=== PATIENT | female | born 1940 | race Caucasian/White ===

== ENCOUNTER 2022-09-10 17:43 | Emergency (ER) | payer MEDICARE, SELFPAY ==
--- NOTE | 2022-09-10 18:27 | ED.SOB ---
HPI - SOB/Dyspnea General Chief Complaint: Nausea/Vomiting/Diarrhea Stated Complaint: sob,vomitting,dizziness, fever Time Seen by Provider: 09/10/22 19:08 Related Data Allergies Allergy/AdvReac Type Severity Reaction Status Date / Time No Known Allergies Allergy Verified 09/10/22 18:27 [facility] Social History Social History Advance Directives: Yes Advance Directives Information Provided: No Advance Directives on File: No Physical Exam Vital Signs: Vital Signs: Last Vital Signs Temp 97.5 F 09/10/22 18:28 Pulse 72 09/10/22 19:50 Resp 21 H 09/10/22 19:50 BP 113/70 09/10/22 19:50 Pulse Ox 98 09/10/22 19:50 O2 Del Method 09/10/22 19:50 BMI result Body Mass Index 24.8 Course Course Course Narrative: RME: Patient is an 81-year-old female with no pertinent past medical history reported. Presents to the emergency department today reporting that Last night began with cough, today with weakness, fatigue, nausea, vomiting, diarrhea, decreased oral intake. She is also reporting anterior chest pain intermittently over past 2-3 days, currently denying chest pain. Denies shortness of breath. Took ibuprofen at 16:00. Has not received vaccination for COVID-19 or influenza PE: Red-brown emesis at the time of examination in bag. Abdominal examination is benign. No respiratory distress. LSCTA. Ambulatory with a slow steady gait. No focal neurological findings. Plan: COVID-19 testing, influenza testing, CBC, CMP, lipase, EKG, troponin, sublingual zofran Medications Administered Discontinued Medications Generic Name Dose Route Start Last Admin Trade Name Freq PRN Reason Stop Dose Admin Aspirin 325 mg 09/10/22 19:21 09/10/22 19:38 Aspirin Enteric Coated 325 Mg Tablet. PO 09/10/22 19:22 325 mg ONCE ONE Administration Heparin Sodium (Porcine) 3,300 unit 09/10/22 19:21 09/10/22 19:49 Heparin Sodium,Porcine 5,000 Unit/Ml Vial 60 unit/kg (3300 unit) 09/10/22 19:22 3,300 unit IVPUSH Administration ONCE ONE Heparin Sodium/Sodium Chloride 25,000 unit in 250 mls @ 0 mls/hr 09/10/22 19:45 09/10/22 19:45 Heparin Sodium,Porcine/1/2ns IVCONT 12 units/kg/hr .Q0M HAYES 6.94 mls/hr Administration Protocol Per Protocol Ondansetron HCl 4 mg 09/10/22 18:43 09/10/22 19:23 Ondansetron Odt 4 Mg Tab.Rapdis TRANSLINGU 09/10/22 18:44 4 mg ONCE ONE Administration Ticagrelor 180 mg 09/10/22 19:27 09/10/22 19:38 Ticagrelor 90 Mg Tablet PO 09/10/22 19:28 180 mg ONCE ONE Administration MDM - SOB/Dyspnea Lab Data Result diagrams: 09/10/22 18:59 09/10/22 18:59 Labs: Lab Results 09/10/22 09/10/22 09/10/22 Range/Units 18:59 18:59 18:59 WBC 17.9 H (4.8-10.8) X10*3/uL RBC 3.39 L (4.20-5.50) X10*6/uL Hgb 10.3 L (12.0-16.0) g/dl Hct 31.2 L (37.0-47.0) % MCV 92.0 (80.0-98.0) fL MCH 30.4 (27.0-33.0) pg MCHC 33.0 (31.0-35.0) g/dl RDW 13.6 (11.0-16.0) % Plt Count 300 (160-400) X10*3/uL MPV 11.3 (9.4-12.3) fL Immature Gran % (Auto) 0.7 H (0.0-0.4) % Neut % (Auto) 83.4 H (45-73) % Lymph % (Auto) 7.3 L (20-40) % Power % (Auto) 8.3 (2-11) % Eos % (Auto) 0.1 (0-4) % Baso % (Auto) 0.2 (0-2) % Lymph # (Auto) 1.3 (1.2-4.9) X10*3/uL Power # (Auto) 1.5 H (0.1-1.2) X10*3/uL Eos # (Auto) 0.0 (0.0-0.4) X10*3/uL Baso # (Auto) 0.0 (0.0-0.2) X10*3/uL Abs Immat Gran (auto) 0.12 H (0.00-0.03) X10*3/uL Absolute Neuts (auto) 14.9 H (2.0-8.3) x10*3/uL Absolute Nucleated RBC 0.000 (0.0-0.012) X10*3/uL Nucleated RBC % (auto) 0.0 (0.0-0.2) /100WBC Sodium 136 (135-145) mmol/L Potassium 4.2 (3.3-5.1) mmol/L Chloride 103 (96-108) mmol/L Carbon Dioxide 22 (22-29) mmol/L Anion Gap 15 (12-20) BUN 23 H (9-16) mg/dL Creatinine 1.03 (0.5-1.4) mg/dL Estim Creat Clear Calc 33.9 Estimated GFR 52 POC Glucose (60-115) mg/dL Random Glucose 164 H (60-115) mg/dL Calcium 9.4 (8.4-10.2) mg/dL Magnesium 2.0 (1.6-2.6) mg/dL Total Bilirubin 0.5 (0.0-1.0) mg/dL AST 341 H (5-31) U/L ALT 91 H (0-31) U/L Alkaline Phosphatase 47 (39-117) U/L Troponin I High Sens > 3600.0 H* (<3.5-17.0) ng/L Total Protein 6.5 (6.5-8.0) g/dL Albumin 4.0 (3.5-5.0) g/dL Lipase 20 (8-78) U/L COVID-19 (ZULLY) (Negative) COVID-19 Clin Com Influenza Type A (MAURICE) (Negative) Influenza Type B (MAURICE) (Negative) Influenza A & B Note 09/10/22 09/10/22 09/10/22 Range/Units 18:59 18:59 19:42 WBC (4.8-10.8) X10*3/uL RBC (4.20-5.50) X10*6/uL Hgb (12.0-16.0) g/dl Hct (37.0-47.0) % MCV (80.0-98.0) fL MCH (27.0-33.0) pg MCHC (31.0-35.0) g/dl RDW (11.0-16.0) % Plt Count (160-400) X10*3/uL MPV (9.4-12.3) fL Immature Gran % (Auto) (0.0-0.4) % Neut % (Auto) (45-73) % Lymph % (Auto) (20-40) % Power % (Auto) (2-11) % Eos % (Auto) (0-4) % Baso % (Auto) (0-2) % Lymph # (Auto) (1.2-4.9) X10*3/uL Power # (Auto) (0.1-1.2) X10*3/uL Eos # (Auto) (0.0-0.4) X10*3/uL Baso # (Auto) (0.0-0.2) X10*3/uL Abs Immat Gran (auto) (0.00-0.03) X10*3/uL Absolute Neuts (auto) (2.0-8.3) x10*3/uL Absolute Nucleated RBC (0.0-0.012) X10*3/uL Nucleated RBC % (auto) (0.0-0.2) /100WBC Sodium (135-145) mmol/L Potassium (3.3-5.1) mmol/L Chloride (96-108) mmol/L Carbon Dioxide (22-29) mmol/L Anion Gap (12-20) BUN (9-16) mg/dL Creatinine (0.5-1.4) mg/dL Estim Creat Clear Calc Estimated GFR POC Glucose 119 H (60-115) mg/dL Random Glucose (60-115) mg/dL Calcium (8.4-10.2) mg/dL Magnesium (1.6-2.6) mg/dL Total Bilirubin (0.0-1.0) mg/dL AST (5-31) U/L ALT (0-31) U/L Alkaline Phosphatase (39-117) U/L Troponin I High Sens (<3.5-17.0) ng/L Total Protein (6.5-8.0) g/dL Albumin (3.5-5.0) g/dL Lipase (8-78) U/L COVID-19 (ZULLY) Negative (Negative) COVID-19 Clin Com See Note Influenza Type A (MAURICE) Negative (Negative) Influenza Type B (MAURICE) Negative (Negative) Influenza A & B Note See Note Discharge Plan Discharge Clinical Impression: Acute ST elevation myocardial infarction (STEMI) Patient Disposition: Xfer [facility] Transfer Details: [facility] Cardiac catheterization Lab Interventions: Acute Care Transfer Worksheet (ED) Last Done: 09/10/22 20:06 Discharge Date/Time: 09/10/22 20:08
[2022-09-10 18:28] VITALS: BP 115/45; PULSE 73; RESP 16; TEMP 36.4; O2SAT 98; BMI 23.8
--- NOTE | 2022-09-10 18:34 | ECG_ITS ---
Test Reason : N/V/D Blood Pressure : / mmHG Vent. Rate : 068 BPM Atrial Rate : 068 BPM P-R Int : 152 ms QRS Dur : 088 ms QT Int : 446 ms P-R-T Axes : 057 -13 059 degrees QTc Int : 474 ms Normal sinus rhythm Left ventricular hypertrophy with repolarization abnormality ( R in aVL , Franki product ) Inferior-posterior infarct , possibly acute ACUTE OH / STEMI Consider right ventricular involvement in acute inferior infarct Abnormal ECG No previous ECGs available Referred By: Katy Ortega Electronically Signed By:APRIL ROSAS MD
[2022-09-10 19:10] LABS: MANUAL DIFF FLAG NO
[2022-09-10 19:11] LABS: Basophils Percent Auto 0.2 % (0-2); Eosinophils Percent Auto 0.1 % (0-4); Hematocrit 31.2 % (37.0-47.0); Hemoglobin 10.3 g/dl (12.0-16.0); Imm Gran Abs Auto 0.12 X10*3/uL (0.00-0.03); Imm Gran Pct Auto 0.7 % (0.0-0.4); Lymphocytes Absolute Auto 1.3 X10*3/uL (1.2-4.9); Lymphocytes Percent Auto 7.3 % (20-40); Mean Corpuscular Hemoglobin 30.4 pg (27.0-33.0); Mean Platelet Volume 11.3 fL (9.4-12.3); Monocytes Absolute Auto 1.5 X10*3/uL (0.1-1.2); Monocytes Percent Auto 8.3 % (2-11); Neutrophils Absolute Auto 14.9 x10*3/uL (2.0-8.3); Neutrophils Percent Auto 83.4 % (45-73); Platelet Count 300 X10*3/uL (160-400); Red Blood Count 3.39 X10*6/uL (4.20-5.50); Red Cell Distribution Width 13.6 % (11.0-16.0); White Blood Count 17.9 X10*3/uL (4.8-10.8)
[2022-09-10] MEDS: Ondansetron ODT 4 MG TAB.RAPDIS TRANSLINGU (19:23)
[2022-09-10 19:27] LABS: Alanine Aminotransferase 91 U/L (0-31); Alkaline Phosphatase 47 U/L (39-117); Anion Gap 15 (12-20); Aspartate Amino Transferase 341 U/L (5-31); Bilirubin Total 0.5 mg/dL (0.0-1.0); Blood Urea Nitrogen 23 mg/dL (9-16); Calcium 9.4 mg/dL (8.4-10.2); Carbon Dioxide 22 mmol/L (22-29); Chloride 103 mmol/L (96-108); Creatinine Clr Calc Pharmacy 33.9; Estimated Glomerular Filt Rate 52; Glucose Random 164 mg/dL (60-115); Lipase 20 U/L (8-78); Potassium 4.2 mmol/L (3.3-5.1); Sodium 136 mmol/L (135-145); Total Protein 6.5 g/dL (6.5-8.0)
[2022-09-10 19:29] LABS: COVID-19 Test Negative (Negative); IDNOW Serial# 55D5AD1C
[2022-09-10 19:30] LABS: Influenza A Negative (Negative); Influenza B2 Negative (Negative)
--- NOTE | 2022-09-10 19:35 | ED_ITS ---
HPI - Chest Pain General Chief Complaint: Nausea/Vomiting/Diarrhea Stated Complaint: sob,vomitting,dizziness, fever Time Seen by Provider: 09/10/22 19:08 Source: patient and family Mode of arrival: ambulatory Limitations: no limitations History of Present Illness HPI narrative: 81-year-old female with no known past medical history (patient has not seen a doctor in approximately 15 years) complaining of some chest discomfort, shortness of breath and nausea which started several days ago. It was intermittent until approximately 4:00 a.m. this afternoon when she started having continuous chest discomfort. The patient was originally resistant to coming to the hospital, however, the patient's daughter convinced her to come into the hospital. complaint: chest pain and chest discomfort Onset (ago): day(s) Timing of current episode: episodic, increasing and still present Prior episodes: No Onset: during rest Pain location: substernal Pain radiation: none Severity: moderate Quality: tightness and aching Exacerbating factors: nothing Associated symptoms: nausea and diaphoresis Treatment prior to arrival: none Risk Factors Coronary artery disease risk factors: none (None known, patient has not seen a doctor in quite a while) Related Data Allergies Allergy/AdvReac Type Severity Reaction Status Date / Time No Known Allergies Allergy Verified 09/10/22 18:27 Review of Systems Review of Systems: Yes Unobtainable due to mental condition Constitutional: Constitutional: Denies chills and Denies fever(s) Eyes: Eyes: Denies blurry vision and Denies diplopia ENT: Reports system reviewed and no additional complaints, except as documented Cardiovascular: Cardiovascular: Reports chest pain, Reports chest pain at rest, Denies Epigastric Pain, Denies leg edema, Denies lightheadedness, Denies Loss of Consciousness and Reports dyspnea Respiratory: Respiratory: Denies cough and Reports dyspnea Gastrointestinal: Gastrointestinal: Reports no additional gastrointestinal complaints Genitourinary: Genitourinary: Reports no additional female genitourinary complaints Musculoskeletal: Musculoskeletal: Denies back pain Neurologic: Reports system reviewed and no additional complaints, except as d ocumented and Denies Abnormal speech present [facility] Past Medical History [facility] Narrative: Patient is unaware of any past medical history. Social history, patient does not smoke or drink alcohol. No known family history of cardiac disease Social History Social History Advance Directives: Yes Advance Directives Information Provided: No Advance Directives on File: No Physical Exam Vital Signs: Vital Signs: Last Vital Signs Temp 97.5 F 09/10/22 18:28 Pulse 73 09/10/22 18:28 Resp 16 09/10/22 18:28 BP 115/45 L 09/10/22 18:28 Pulse Ox 98 09/10/22 18:28 O2 Del Method 09/10/22 18:28 BMI result Body Mass Index 23.8 Stable and normal Const: General: healthy appearing, comfortable, alert, awake and Physically active Nutritional Appearance: average body habitus O rientation/consciousness: patient oriented x3 Limitations: no limitations HEENT: Head: Yes normal to inspection, Yes normocephalic and Yes atraumatic Ears: hearing grossly normal bilaterally General nose exam: Normal external nose present Face and sinus: Yes normal facial exam Mouth: Normal oral and palatal mucosa present Neck: Neck: Yes normal visual inspection and Yes full ROM Chest: Chest palpation & inspection: deferred Resp: Effort & Inspection: normal respiratory effort and no cough Auscultation: clear to auscultation bilaterally Cardio: Jugular venous distension: no JVD Rate: regular rate Rhythm: regular rhythm GI: Inspection: Yes normal to inspection, No Abdominal wall edema and No distended Back/Spine/Pelvis: Cervical Spine: normal cervical lordosis and cervical ROM normal Skin: General skin exam: no rashes or lesions noted Neuro: General: patient oriented x3 and CN's II-XI intact bilaterally Cognition (Neuro): normal cognition Speech: No Abnormal speech present Gait exam (Neuro): Normal gait present Extrem: General: Yes normal to inspection, No clubbing, No cyanosis and No edema Medications Administered Discontinued Medications Generic Name Dose Route Start Last Admin Trade Name Freq PRN Reason Stop Dose Admin Ondansetron HCl 4 mg 09/10/22 18:43 09/10/22 19:23 Ondansetron Odt 4 Mg Tab.Rapdis TRANSLINGU 09/10/22 18:44 4 mg ONCE ONE Administration MDM - Chest Pain MDM Narrative Medical decision making narrative: 81-year-old female with intermittent chest pain and shortness of breath. The patient is not seen to have an inferior STEMI. Patient was treated here in the emergency department with oxygen, IV heparin, p.o. Brilinta, and aspirin. The patient will be transferred to [facility] for definitive treatment with cardiac catheterization. I discussed the case with the baseball pitcher on- call at [facility]. Medical Records Data Medical records narrative: No medical records available for review Lab Data Attestation: I reviewed the patient's lab results. Lab results narrative: Of note is a troponin of greater than 3000 and a white count of 17.9 which is most likely stress related. Result diagrams: 09/10/22 18:59 09/10/22 18:59 Labs: Lab Results 09/10/22 09/10/22 09/10/22 Range/Units 18:59 18:59 18:59 WBC 17.9 H (4.8-10.8) X10*3/uL RBC 3.39 L (4.20-5.50) X10*6/uL Hgb 10.3 L (12.0-16.0) g/dl Hct 31.2 L (37.0-47.0) % MCV 92.0 (80.0-98.0) fL MCH 30.4 (27.0-33.0) pg MCHC 33.0 (31.0-35.0) g/dl RDW 13.6 (11.0-16.0) % Plt Count 300 (160-400) X10*3/uL MPV 11.3 (9.4-12.3) fL Immature Gran % (Auto) 0.7 H (0.0-0.4) % Neut % (Auto) 83.4 H (45-73) % Lymph % (Auto) 7.3 L (20-40) % [place] % (Auto) 8.3 (2-11) % Eos % (Auto) 0.1 (0-4) % Baso % (Auto) 0.2 (0-2) % Lymph # (Auto) 1.3 (1.2-4.9) X10*3/uL [place] # (Auto) 1.5 H (0.1-1.2) X10*3/uL Eos # (Auto) 0.0 (0.0-0.4) X10*3/uL Baso # (Auto) 0.0 (0.0-0.2) X10*3/uL Abs Immat Gran (auto) 0.12 H (0.00-0.03) X10*3/uL Absolute Neuts (auto) 14.9 H (2.0-8.3) x10*3/uL Absolute Nucleated RBC 0.000 (0.0-0.012) X10*3/uL Nucleated RBC % (auto) 0.0 (0.0-0.2) /100WBC Sodium 136 (135-145) mmol/L Potassium 4.2 (3.3-5.1) mmol/L Chloride 103 (96-108) mmol/L Carbon Dioxide 22 (22-29) mmol/L Anion Gap 15 (12-20) BUN 23 H (9-16) mg/dL Creatinine 1.03 (0.5-1.4) mg/dL Estim Creat Clear Calc 33.9 Estimated GFR 52 Random Glucose 164 H (60-115) mg/dL Calcium 9.4 (8.4-10.2) mg/dL Magnesium 2.0 (1.6-2.6) mg/dL Total Bilirubin 0.5 (0.0-1.0) mg/dL AST 341 H (5-31) U/L ALT 91 H (0-31) U/L Alkaline Phosphatase 47 (39-117) U/L Total Protein 6.5 (6.5-8.0) g/dL Albumin 4.0 (3.5-5.0) g/dL Lipase 20 (8-78) U/L COVID-19 (ZULLY) (Negative) COVID-19 Clin Com Influenza Type A (MAURICE) Negative (Negative) Influenza Type B (MAURICE) Negative (Negative) Influenza A & B Note See Note 09/10/22 Range/Units 18:59 WBC (4.8-10.8) X10*3/uL RBC (4.20-5.50) X10*6/uL Hgb (12.0-16.0) g/dl Hct (37.0-47.0) % MCV (80.0-98.0) fL MCH (27.0-33.0) pg MCHC (31.0-35.0) g/dl RDW (11.0-16.0) % Plt Count (160-400) X10*3/uL MPV (9.4-12.3) fL Immature Gran % (Auto) (0.0-0.4) % Neut % (Auto) (45-73) % Lymph % (Auto) (20-40) % [place] % (Auto) (2-11) % Eos % (Auto) (0-4) % Baso % (Auto) (0-2) % Lymph # (Auto) (1.2-4.9) X10*3/uL [place] # (Auto) (0.1-1.2) X10*3/uL Eos # (Auto) (0.0-0.4) X10*3/uL Baso # (Auto) (0.0-0.2) X10*3/uL Abs Immat Gran (auto) (0.00-0.03) X10*3/uL Absolute Neuts (auto) (2.0-8.3) x10*3/uL Absolute Nucleated RBC (0.0-0.012) X10*3/uL Nucleated RBC % (auto) (0.0-0.2) /100WBC Sodium (135-145) mmol/L Potassium (3.3-5.1) mmol/L Chloride (96-108) mmol/L Carbon Dioxide (22-29) mmol/L Anion Gap (12-20) BUN (9-16) mg/dL Creatinine (0.5-1.4) mg/dL Estim Creat Clear Calc Estimated GFR Random Glucose (60-115) mg/dL Calcium (8.4-10.2) mg/dL Magnesium (1.6-2.6) mg/dL Total Bilirubin (0.0-1.0) mg/dL AST (5-31) U/L ALT (0-31) U/L Alkaline Phosphatase (39-117) U/L Total Protein (6.5-8.0) g/dL Albumin (3.5-5.0) g/dL Lipase (8-78) U/L COVID-19 (ZULLY) Negative (Negative) COVID-19 Clin Com See Note Influenza Type A (MAURICE) (Negative) Influenza Type B (MAURICE) (Negative) Influenza A & B Note ECG Data ECG #1: Attestation: I personally reviewed and interpreted this ECG as follows: ECG interpretation date: 09/10/22 ECG interpretation time: 19:05 Prior ECG tracings: not available for review Ischemic changes: acute STEMI Interpretation: Normal sinus rhythm at 68, acute ST-elevation MS inferiorly, with reciprocal lateral changes. Normal intervals and a normal axis. Critical Care Time Critical Care Time Critical Care Time: Yes Total Critical Care Time: 60 Attestation: The patient arrived to the ED with a critical illness, or critical findings necessitating immediate assessment. Cardiopulmonary monitoring was initiated due to the potential for rapid decompensation of the patient's clinical condition. During the course of the patient?s stay, significant time was spent at the bedside performing serial re-evaluations of the patient's hemodynamic and c linical status because of the recognized potential threat to life or limb in this condition. The patient received aspirin, heparin, and Brilinta. All of the available current laboratory and radiographic studies obtained were reviewed. Any available old records were reviewed, including records from primary care physicians and outside institutions. The case was discussed with the middle school counselor at [facility], the patient's daughter and the patient herself. Sequential vital signs were obtained. Critical Care time of 60 minutes was performed exclusive of billable procedures Discharge Plan Discharge Clinical Impression: Acute ST elevation myocardial infarction (STEMI) Patient Disposition: [facility] Transfer Details: [facility] Cardiac catheterization Lab
[2022-09-10 19:37] VITALS: BMI 24.8
[2022-09-10] MEDS: Aspirin Enteric Coated 325 MG TABLET.DR PO (19:38)
[2022-09-10] MEDS: Ticagrelor 90 MG TABLET 180 MG PO (19:38)
[2022-09-10 19:40] VITALS: BP 125/53; PULSE 72; RESP 17; O2SAT 98
[2022-09-10 19:41] LABS: Troponin-I High Sensitivity > 3600.0 ng/L (<3.5-17.0)
[2022-09-10] MEDS: Heparin Sodium,Porcine/1/2NS 25,000 UNIT/250 ML IV.SOLN 6.94 UNIT IVCONT (19:45)
[2022-09-10 19:48] LABS: Glucose, Whole Blood 119 mg/dL (60-115)
[2022-09-10] MEDS: Heparin Sodium,Porcine 5,000 UNIT/ML VIAL 3300 UNIT IVPUSH (19:49)
[2022-09-10 19:50] VITALS: BP 113/70; PULSE 72; RESP 21; O2SAT 98
--- NOTE | 2022-09-10 19:54 | PC.NURSE ---
[facility]'s Stemi Line called at 1921,awaiting a call back. At 1924 [place] called for a Stat Stemi[facility] per Dr. Hyde. At 1925 [facility] called and spoke with ,Patient accepted by patient is going straight to the [facility].Rn aware Nurse to Nurse Nacho arrived at 1934 to transfer patient.
--- NOTE | 2022-09-10 20:05 | PC.NURSE ---
report given to transport team and [facility] microbiology laboratory manager LORENA Ramon. pt left alert and oriented. via ambulance
== END 2022-09-10 20:08 | disposition short-term general hospital (02) ==
PROVIDERS: Nurse Practitioner Family; Emergency Provider Emergency Medicine
DX: I21.3 ST elevation (STEMI) myocardial infarction of unspecified site (principal); Z20.822 Contact with and (suspected) exposure to COVID-19
CPT/HCPCS: 80053; 82947; 83690; 83735; 84484; 85025; 87502; 87635; 93005; 96374; 99285